=== PATIENT | female | born 1955 | race Caucasian/White ===

== ENCOUNTER 2016-12-24 08:23 | Emergency (ER) | payer OTHER ==
[~2016-12-24] VITALS: Ht 160 cm; Wt 63.5 kg
--- NOTE | 2016-12-24 08:48 | ED GI/GU/ABDOMINAL COMPLAINT ---
History of Present Illness General Chief Complaint: Abdominal Pain/Flank Pain Stated Complaint: ABD PAIN Source: patient, old records Exam Limitations: no limitations Vital Signs & Intake/Output Vital Signs & Intake/Output Vital Signs Date Time Temp Pulse Resp B/P B/P Pulse O2 O2 Flow FiO2 Mean Ox Delivery Rate 12/24 1035 98.1 81 18 107/57 98 Room Air 12/24 0830 96.9 100 16 118/77 97 Room Air Allergies Coded Allergies: Penicillins (RASH 12/24/16) amoxicillin (From AUGMENTIN) (HIVES 12/24/16) ciprofloxacin (From CIPRO) (HIVES 12/24/16) clavulanic acid (From AUGMENTIN) (HIVES 12/24/16) Reconcile Medications Amlodipine Besylate 10 MG TABLET 1 TAB PO DAILY HTN (Reported) Atorvastatin Calcium 20 MG TABLET 1 TAB PO DAILY CHOL (Reported) Lisinopril 10 MG TABLET 1 TAB PO DAILY HTN (Reported) Triage Note: PT STATES SHE HAS BEEN HAVING STOMACH PROBLEMS SINCE LAST WEEK. PT C/O A LOT OF GAS AND EPIGASTRIC PAIN. PT STATES SHE HAS BEEN BURPING AND NOW SHE HAS DIARRHEA. PT REPORTS SHE HAS DIVERTICULITIS AND ISN'T SURE IF THIS IS A FLAIR UP. Triage Nurses Notes Reviewed? yes ? N Is pt currently ? No HPI: Patient presents with epigastric burning cramping pain associated with nausea and vomiting for the past week. There is no radiation. There are no aggravating or mitigating factors. Last night the pain kept her up all night so she comes in this morning for evaluation. She rates the pain as 8 out of 10. There are no aggravating or mitigating factors. There is no shortness of breath. She states that she's had occasional loose stools. The pain is constant. Past History Travel History Traveled to [place] past 21 day No Medical History Any Pertinent Medical History? see below for history Cardiovascular: hypertension, hyperlipidemia Surgical History Surgical History: appendectomy Psychosocial History What is your primary language Lithuanian Tobacco Use: Current Daily Use Daily Tobacco Use Amount/Type: => 5 Cigarettes daily ETOH Use: occasional use Illicit Drug Use: denies illicit drug use Family History Hx Contributory? No Review of Systems Review of Systems Constitutional: Reports: no symptoms. EENTM: Reports: no symptoms. Respiratory: Reports: no symptoms. Cardiovascular: Reports: no symptoms. GI: Reports: see HPI, abdominal pain, nausea, vomiting. Genitourinary: Reports: no symptoms. Musculoskeletal: Reports: no symptoms. Skin: Reports: no symptoms. Neurological/Psychological: Reports: no symptoms. Hematologic/Endocrine: Reports: no symptoms. Immunologic/Allergic: Reports: no symptoms. All Other Systems: Reviewed and Negative Physical Exam Physical Exam General Appearance: no apparent distress, alert, awake, anxious, moderate distress Head: atraumatic, normal appearance Eyes: Bilateral: PERRL, EOMI, other (ANICTERIC). Ears, Nose, Throat, Mouth: hearing grossly normal, DRY MUCUS MEMBRANES Neck: normal inspection, supple, full range of motion Respiratory: normal breath sounds, chest non-tender, no respiratory distress, lungs clear Cardiovascular: regular rate/rhythm, normal peripheral pulses Gastrointestinal: normal bowel sounds, soft, no organomegaly, tenderness ( EPIGASTRIC AND RUQ) Back: normal inspection, normal range of motion, NO CVA TENDERNESS Extremities: normal range of motion Neurologic/Psych: no motor/sensory deficits, awake, alert, oriented x 3, normal gait, normal mood/affect Skin: intact, normal color, warm/dry Core Measures ACS in differential dx? No Severe Sepsis Present: No Septic Shock Present: No Progress Differential Diagnosis: AMI, biliary colic, cholecystitis, diverticulitis, gastritis, hepatitis, ischemic bowel, inflamm bowel dis, pancreatitis, peptic ulcer, PUD/GERD Plan of Care: Orders Procedure Date/time Status Telemetry/Education Sales Consultant 12/24 0852 Active EKG 12/24 0848 Active TROPONIN LEVEL 12/24 0845 Complete LIPASE 12/24 0837 Complete LACTIC ACID 12/24 0837 Complete COMPREHENSIVE METABOLIC PANEL 12/24 0837 Complete CBC WITHOUT DIFFERENTIAL 12/24 0837 Complete AMYLASE 12/24 0837 Complete Laboratory Tests 12/24/16 0848: Troponin I Cancelled 12/24/16 0845: Anion Gap 12, Estimated GFR > 60, BUN/Creatinine Ratio 20.0, Glucose 125 H, Lactic Acid 1.5, Calcium 9.0, Total Bilirubin 1.1, AST 32, ALT 79 H, Alkaline Phosphatase 98, Troponin I < 0.01, Total Protein 6.3, Albumin 3.8, Globulin 2.5, Albumin/Globulin Ratio 1.5, Amylase 36, Lipase 35, CBC w Diff NO MAN DIFF REQ, RBC 4.80, MCV 89.7, MCH 30.8, RDW 12.9, MPV 8.9, Gran % 57.9, Lymphocytes % 31.9 , Monocytes % 7.4, Eosinophils % 2.2, Basophils % 0.6, Absolute Granulocytes 3.9 , Absolute Lymphocytes 2.1, Absolute Monocytes 0.5, Absolute Eosinophils 0.1, Absolute Basophils 0, PUBS MCHC 34.3 12/24/16 0837: Urine Color Cancelled, Urine Clarity Cancelled, Urine pH Cancelled, Ur Specific [place] Cancelled, Urine Protein Cancelled, Urine Ketones Cancelled, Urine Nitrite Cancelled, Urine Bilirubin Cancelled, Urine Urobilinogen Cancelled, Ur Leukocyte Esterase Cancelled, Ur Microscopic Cancelled, Urine Hemoglobin Cancelled, Urine Glucose Cancelled Diagnostic Imaging: Viewed by Me: Ultrasound. Discussed w/RAD: Ultrasound. Radiology Impression: PATIENT: ERNIE ARMENTA PRESENT AGE: 61 PATIENT ACCOUNT NO: [id number] : 56 LOCATION: [facility] ORDERING PHYSICIAN: SUELLEN ANDREWS MD SERVICE DATE: 12/24/16 EXAM TYPE: US - US-LIMITED ABDOMEN EXAMINATION: US ABDOMEN LIMITED CLINICAL INFORMATION: Right upper quadrant pain. COMPARISON: Ultrasound aorta are 2013. CT chest screening 01/04/2016 TECHNIQUE: Real-time imaging of the right upper quadrant abdominal viscera. FINDINGS: PANCREAS: The visualized pancreas shows no mass or ductal dilatation. There is no retroperitoneal effusion. The pancreatic tail is obscured by bowel gas and not completely imaged. LIVER: Liver is normal in size and smooth in contour. There is increased hepatic parenchymal echogenicity consistent with hepatic steatosis. Probable fatty sparing posterior subcapsular left lobe adjacent to the sarah hepatis measuring 1.0 x 3.2 x 3.3 cm. Otherwise, there is no intrahepatic biliary ductal dilatation or focal hepatic parenchymal lesion. GALLBLADDER: Normal. The gallbladder is physiologically distended without evidence of stones, sludge, polyps, wall thickening or pericholecystic fluid. COMMON BILE DUCT: Normal in caliber measuring 0.5 cm in diameter. RIGHT KIDNEY: Normal. No hydronephrosis. No renal calculi or focal parenchymal lesions. The kidney measures 11.0 cm in maximum dimension. FREE FLUID: None. IMPRESSION: 1. No cholelithiasis or biliary ductal dilatation. 2. No right hydronephrosis. 3. Hepatic steatosis with probable focal sparing subcapsular left lobe. DICTATED BY: NELA ROMO MD DATE/TIME DICTATED:12/24/161014 BACTERIOLOGY RESEARCH ASSISTANT:BRITTANEY DATE/TIME TRANSCRIBED:1014 CONFIDENTIAL, DO NOT COPY WITHOUT APPROPRIATE AUTHORIZATION. < Electronically signed in Other Vendor System> SIGNED BY: NELA ROMO MD 12/24/16 102 Initial ED EKG: NSR, no ST T wave changes Rhythm Strip: normal sinus rhythm Comments: Patient feels much better after the GI cocktail. Lab work and ultrasound results have been discussed with the patient and her family. Questions have been answered. Patient feels comfortable going home. Departure Departure Disposition: HOME OR SELF CARE Condition: Stable Clinical Impression Primary Impression: Gastritis Referrals: NATHANIEL CABRERA,EDIE HOLLINGSWORTH MD,BAMBI Noble (PCP/Family) Additional Instructions: Follow up with gastroenterology. Take Protonix as prescribed. Return if symptoms worsen or for any concerns. Departure Forms: Customer Survey General Discharge Information Prescriptions: Current Visit Scripts Pantoprazole Sodium (Protonix) 1 TAB PO BID #28 TAB
[2016-12-24] MEDS ORDERED: ATORVASTATIN CA20 M1 PO (09:05)
[2016-12-24] MEDS ORDERED: LISINOPRIL10 M1 PO (09:05)
[2016-12-24] MEDS ORDERED: AMLODIPINE BESY10 M1 PO (09:05)
[2016-12-24 09:08] LABS: ABSOLUTE BASOPHIL COUNT 0 /CUMM (0.0-0.2); ABSOLUTE EOSINOPHIL COUNT 0.1 /CUMM (0.0-0.7); ABSOLUTE LYMPH COUNT 2.1 /CUMM (1.2-3.4); MEAN CORPUSCULAR HGB 30.8 PG (27.0-31.0); MEAN CORPUSCULAR HGB CONC 34.3 G/DL (33.0-37.0)
[2016-12-24 09:13] LABS: ABSOLUTE GRANULOCYTE CT 3.9 /CUMM (1.4-6.5); ABSOLUTE MONOCYTE COUNT 0.5 /CUMM (0.10-0.60); BASOPHIL % 0.6 % (0.0-2.0); EOSINOPHIL % 2.2 % (0-5); GRANULOCYTE % 57.9 % (42.2-75.2); HEMATOCRIT 43.1 % (37-47); MEAN CORPUSCULAR VOLUME 89.7 FL (81.0-99.0); MEAN PLATELET VOLUME 8.9 FL (7.4-10.4); PLATELET COUNT 184 /CUMM (130-400); RBC DISTRIBUTION WIDTH 12.9 % (11.5-14.5)
[2016-12-24 09:15] LABS: WHITE BLOOD CELL COUNT 6.7 /CUMM (4.8-10.8)
--- NOTE | 2016-12-24 10:25 | ULTRASOUND REPORT ---
EXAMINATION: US ABDOMEN LIMITED CLINICAL INFORMATION: Right upper quadrant pain. COMPARISON: Ultrasound aorta are 06/09/2014. CT chest screening 01/04/2016 TECHNIQUE: Real-time imaging of the right upper quadrant abdominal viscera. FINDINGS: PANCREAS: The visualized pancreas shows no mass or ductal dilatation. There is no retroperitoneal effusion. The pancreatic tail is obscured by bowel gas and not completely imaged. LIVER: Liver is normal in size and smooth in contour. There is increased hepatic parenchymal echogenicity consistent with hepatic steatosis. Probable fatty sparing posterior subcapsular left lobe adjacent to the sarah hepatis measuring 1.0 x 3.2 x 3.3 cm. Otherwise, there is no intrahepatic biliary ductal dilatation or focal hepatic parenchymal lesion. GALLBLADDER: Normal. The gallbladder is physiologically distended without evidence of stones, sludge, polyps, wall thickening or pericholecystic fluid. COMMON BILE DUCT: Normal in caliber measuring 0.5 cm in diameter. RIGHT KIDNEY: Normal. No hydronephrosis. No renal calculi or focal parenchymal lesions. The kidney measures 11.0 cm in maximum dimension. FREE FLUID: None. IMPRESSION: 1. No cholelithiasis or biliary ductal dilatation. 2. No right hydronephrosis. 3. Hepatic steatosis with probable focal sparing subcapsular left lobe.
[2016-12-24 10:35] VITALS: BP 107/57
[2016-12-24] MEDS ORDERED: PROTONIX40 M3 PO (10:51)
== END 2016-12-24 10:58 ==
LOC: ERH 08:23
PROVIDERS: Emergency Medicine
DX: K29.70 Gastritis, unspecified, without bleeding (principal)
CPT/HCPCS: 93005; 93010